=== PATIENT | male | born 1960 | race Caucasian/White ===

== ENCOUNTER → 2020-02-14 | Outpatient (CLI) | payer OTHER ==
--- NOTE | 2020-02-14 15:31 | KCIC ---
EXAM: AP, oblique and lateral views left knee DATE: 02/14/2020 12:00 AM INDICATION: Reason: LEFT KNEE PAIN / Spl. Instructions: Pain behind patella 1 month. No injury / History: COMPARISON: No Prior FINDINGS: Multi partite appearance of the patella. No evidence of acute fracture or dislocation. No joint effusion. IMPRESSION: 1. Multi partite appearance of the patella. Given provided history of patellar pain, this may be symptomatic. If this needs to be further assessed, MRI would provide additional details. 2. Otherwise, no evidence of acute fracture or dislocation. Electronically signed by: Alfie Ji MD (02/14/2020 3:28 PM) JUAN ALBERTO
== END | disposition home or self-care (01) ==
LOC: KCIC 13:22
PROVIDERS: ATTEND Nurse Practitioner Family
DX: M25.562 Pain in left knee (principal)
CPT/HCPCS: 73562

== ENCOUNTER → 2020-03-05 | Outpatient (CLI) | payer OTHER ==
--- NOTE | 2020-03-05 13:13 | KCIC ---
Examination: MRI of the left knee without contrast HISTORY: History of left knee pain COMPARISON: None available TECHNIQUE: Multiplanar, multisequence MR imaging of the left knee without contrast. FINDINGS: The anterior cruciate ligament, posterior cruciate ligament appears intact. The medial meniscus, lateral meniscus appears intact. The medial collateral ligament appears intact. Lateral collateral ligamentous complex including the fibular collateral ligament, biceps femoris tendon, popliteus tendon appears intact. The extensor mechanism appears intact. 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 Small cystic changes identified about the bipartite patella in the posterolateral bilateral lungs likely secondary to biomechanical changes. The medial, lateral retinaculum appears intact. Small knee joint effusion. IMPRESSION: 1. 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 2. Minimal knee joint effusion. Electronically signed by: Alejandro Brand MD (03/05/2020 1:10 PM) [id number]
== END ==
LOC: KCIC MRI 12:22
PROVIDERS: ATTEND Nurse Practitioner Family
DX: M25.462 Effusion, left knee (principal)
CPT/HCPCS: 73721

== ENCOUNTER → 2020-09-03 | Outpatient (CLI) | payer OTHER ==
--- NOTE | 2020-09-03 16:15 | KCIC ---
EXAM: 3 Views Right Shoulder DATE: 09/03/2020 11:41 AM INDICATION: Reason: RIGHT SHOULDER PAIN / Spl. Instructions: Right shoulder pain and LROM for 2 mths. NKI. / History: COMPARISON: No Prior FINDINGS: There is no evidence for acute fracture or dislocation. AC joint is congruent. AC joint degenerative changes are seen. Humeral head is not high riding. Mild lateral downsloping of the distal acromion. IMPRESSION: 1. No acute fracture or dislocation. Electronically signed by: Alfie Ji MD (09/03/2020 4:12 PM) [id number]
== END ==
LOC: KCIC 11:38
PROVIDERS: ATTEND Nurse Practitioner Family
DX: M19.011 Primary osteoarthritis, right shoulder (principal)
CPT/HCPCS: 73030

== ENCOUNTER → 2020-09-19 | Outpatient (CLI) | payer OTHER ==
--- NOTE | 2020-09-19 17:31 | KCIC ---
EXAMINATION: MRI RIGHT SHOULDER WITHOUT IV CONTRAST CLINICAL HISTORY: Right shoulder pain and limited range of motion since May, no known injury. TECHNIQUE: Multiplanar multisequential images obtained through the shoulder without intravenous contr ast. COMPARISON: Right shoulder radiographs 09/23/2020 FINDINGS: TENDONS: - Supraspinatus: Irregularity and heterogeneous signal along the width of the tendon, compatible with tendinosis and likely low-grade fraying and/or partial-thickness tearing. No definite full-thickness tear. - Infraspinatus: Mild to moderate tendinosis without discrete tear. - Subscapularis: Moderate to marked tendinosis without definite tear. - Teres Minor: Intact. - Biceps Tendon: The long head biceps tendon is intact and appropriately located. MUSCLES: Muscle bulk and signal intensity are within normal limits. LABRUM: Circumferential labral degeneration without discrete tear. GLENOHUMERAL JOINT: - Joint Fluid: Trace joint effusion. - Cartilage: Within normal limits. ACROMIOCLAVICULAR JOINT: Moderate hypertrophic degenerative changes. BONES/MARROW: No evidence of acute fracture or suspicious marrow replacing process. OTHER: Mild fluid in the subacromial/subdeltoid bursa. IMPRESSION: Rotator cuff tendinosis as described with likely low-grade fraying and/or partial-thickness tearing i n the supraspinatus tendon. No definite full-thickness rotator cuff tear. Electronically signed by: Sarath Story DO (09/19/2020 5:29 PM) [id number]
== END ==
LOC: KCIC MRI 15:45
PROVIDERS: ATTEND Nurse Practitioner Family
DX: M19.011 Primary osteoarthritis, right shoulder (principal)
CPT/HCPCS: 73221

== ENCOUNTER → 2021-01-10 | Outpatient (CLI) | payer OTHER ==
--- NOTE | 2021-01-10 16:20 | KCIC ---
EXAM: MRI left shoulder DATE: 01/10/2021 1:55 PM COMPARISON: None INDICATION: Reason: LEFT SHOULDER PAIN / Spl. Instructions: / History: Left shoulder pain progressin g over several mths. Full ROM. TECHNIQUE: Multiplanar, multisequence MRI of the left shoulder was performed without contrast. FINDINGS: Marked edema centered at the AC joint with associated degenerative cystic change. No acute fracture. Capsular edema is seen. Partial-thickness bursal sided tear of the supraspinatus tendon involving 50 percent tendon thickness , measuring about 7 mm in AP dimension. Rotator cuff muscle signal and bulk is normal without fatty a trophy. Subacromial subdeltoid bursal fluid likely bursitis. Mild increased signal within the intra-articular long head biceps tendon, tendinosis. Extra articular long head biceps tendon is intact. Evaluation for labral tear limited on this nonarthrographic study. Trace fluid signal is seen through the posterior labral-chondral junction on a single slice (series 3 image 13) suspicious for labral t ear. Articular cartilage is preserved. No fracture or osteonecrosis. IMPRESSION: 1. Partial-thickness bursal sided tear of the supraspinatus tendon involving 50 percent tendon thick ness, measuring 7 mm in AP dimension. Subacromial-subdeltoid bursal edema, bursitis. 2. 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 Associated AC joint capsular ligamentous injury is a consideration. No coracoclavicular edema or widening. Electronically signed by: Alfie Ji MD (01/10/2021 4:17 PM) JUAN ALBERTO
== END ==
LOC: KCIC MRI 13:43
PROVIDERS: ATTEND Nurse Practitioner Family
DX: M75.112 Incomplete rotator cuff tear or rupture of left shoulder, not specified as traumatic (principal); M19.012 Primary osteoarthritis, left shoulder; M75.22 Bicipital tendinitis, left shoulder; R60.0 Localized edema; M25.512 Pain in left shoulder
CPT/HCPCS: 73221